=== PATIENT | male | born 1955 ===

== ENCOUNTER → 2019-10-20 | Outpatient (REF) ==
--- NOTE | 2019-10-27 08:34 | SLEEPHOME ---
DATE OF STUDY: 10/20/2019 ORDERED BY: REGINA MCCOY Diagnostic home sleep testing was performed due to concern for the obstructive sleep apnea syndrome. For testing, a nocturnal T3 respiratory monitoring device was used. Continuous record was made of pulse, oxygen saturation, airflow, chest and abdominal strain, and body position. 8 hours and 59 minutes of data were reviewed. There were 8 hours and 59 minutes marked as time in bed. During the interval marked time in bed, there were 515 respiratory events identified of 10 seconds in duration or greater for a respiratory event index of 57.2. The events were primarily obstructive. A sensor was lost early in the study. There were very few mixed and central events. The patient's baseline pulse rate was 68 beats per minute, pulse rate ranged 54-90. Baseline saturation 93%, saturations fell as low as 72%. Testing was performed in both supine and nonsupine positions. IMPRESSION: Abnormal home sleep testing with repetitive respiratory events and oxygen desaturations to 72% with a respiratory event index of 57.2 is consistent with the obstructive sleep apnea syndrome. RECOMMENDATION: The patient should be referred for formal evaluation and consideration given to inpatient pressure titration given the severity of disease.
== END ==
LOC: M SLEEP HO 09:03
DX: I50.9 Heart failure, unspecified (principal)